=== PATIENT | female | born 1985 | race Caucasian/White ===

== ENCOUNTER → 2018-01-27 14:17 | Outpatient (CLI) | payer OTHER, SELFPAY ==
[2018-01-27 15:08] LABS: Amphetamine/Metha Screen,Urine Positive ng/mL (<1000); Barbiturates Screen,Urine Negative ng/mL (<200); Benzodiazepines Screen,Urine Negative ng/mL (200); Cannabinoid Screen,Urine Negative ng/mL (<50); Cocaine Screen,Urine Negative ng/g (<300); Methadone Screen,Urine Negative ng/mL (<300); Opiate Screen,Urine Negative ng/mL (<300); Phencyclidine Screen,Urine Negative ng/mL (<25)
== END ==
PROVIDERS: Nurse Practitioner Family; PCP Internal Medicine Adolescent Medicine; Visit Provider Internal Medicine Adolescent Medicine
DX: Z00.00 Encounter for general adult medical examination without abnormal findings (principal)
CPT/HCPCS: 80305

== ENCOUNTER → 2018-03-05 12:30 | Outpatient (CLI) | payer OTHER, SELFPAY ==
--- NOTE | 2018-03-05 12:37 | US_ITS ---
US abdomen limited History:Right upper quadrant pain Ordering Physician:Molly Plunkett Patient Age: 32 years Comparison:None Findings: Pancreas:Unremarkable. No obvious mass or abnormal fluid collection. No ductal dilatation Liver:No focal liver lesions demonstrated. Homogeneous echogenicity. No intrahepatic biliary ductal dilatation evident Right Kidney:Unremarkable. Normal size and echogenicity. No hydronephrosis Gallbladder:No gallstones, gallbladder wall thickening, pericholecystic fluid, or biliary dilatation. Impression:Negative gallbladder/right upper quadrant ultrasound
== END ==
PROVIDERS: Family Provider Internal Medicine Adolescent Medicine; PCP Internal Medicine Adolescent Medicine; Visit Provider Nurse Practitioner Family
DX: R10.10 Upper abdominal pain, unspecified (principal)
CPT/HCPCS: 76705

== ENCOUNTER 2020-12-10 10:31 | Emergency (ER) | payer BC, SELFPAY ==
[2020-12-10 10:45] VITALS: BP 133/83; PULSE 113; RESP 20; TEMP 36.8; O2SAT 98; BMI 42.4
--- NOTE | 2020-12-10 11:07 | HMH.EDUTC ---
[facility] [place] Clinical Impression: Cough, Encounter for laboratory testing for COVID-19 virus Disposition: Home, Self-Care Condition on Discharge: Good Instructions: Cough, DI for COVID-19 (Suspected or Confirmed ), Coronavirus Disease 2019, Preventing the Spread of Coronavirus Discharge Instructions, Benzonatate Additional Instructions: *Monitor Temp, Over the counter Motrin or Tylenol as directed/as needed Tylenol every 4 hours and Motrin every 6 hours (as long as your family doctor has told you that you can take it) for fever or pain. and straight to ER if unable to lower temp less than 101.0 after medication given *Warm salt water gargles may help to soothe the throat if your throat is feeling sore *Warm fluids like tea with honey may help to soothe the throat *Sleep elevated *Humidifier/Vaporizer Follow up IMMEDIATELY for new or worsening symptoms or no Noticeable improvement over the next 48-72 hours. 911 for difficulty breathing or swallowing You were tested for today for COVID19 your test result should be back in the next 24-48 hours, you may call to the [facility] to see if your test results are back in the next 48 hours [phone] [facility] hours are 9am-9pm You was given a handout with instructions for Self Quarantine and Self isolation for while you wait on test results and what to do if they are positive If you are positive the Health Dept will be contacting you also Prescriptions: Benzonatate [Tessalon Perle 100mg Cap*] 100 mg PO TID PRN #30 cap PRN Reason: Cough Transmission Status: Pending to [place] [id number] Referrals: Scott Monroy MD [Primary Care Provider] - As needed Forms: Work/School Release Time of Disposition: 11:20 Medical Decision Making - Carlos Inquiry Pt receiving controlled substance: No Carlos was queried for this patient: No Vital Signs: 12/10/20 10:45 Temperature 98.3 F Temperature Source Oral Pulse Rate [Right Brachial] 113 H Respiratory Rate 20 Blood Pressure [Right Arm] 133/83 Blood Pressure Mean [Right Arm] 99 Blood Pressure Source [Right Arm] Automatic Cuff Blood Pressure Position [Right Arm] Sitting 02 Sat by Pulse Oximetry 98 Oxygen Delivery Method Room Air [facility] [place] HPI - General Stated complaint: SOB;Cough;Fatigue Time Seen by Provider: 12/10/20 11:07 Mode of Arrival: Ambulatory Source of Information: Patient Limitations: No Limitations Description of Symptoms (Recalled from Triage Doc. by RN): PATIENT C/O WEAKNESS AND SOA SINCE SATURDAY AND DRY COUGH SINCE SATURDAY AND DRY COUGH SINCE HEENT Symptoms (Recalled from RN notes): No Resp Symptoms (Recalled from RN notes): Yes Skin Symptoms (Recalled from RN notes): No MS Symptoms (Recalled from RN notes): No Functional Status (Recalled from RN notes): WNL - History of Present Illness Provider Complaint: Patient states that she has exercised induced asthma and she noticed while she was working out she felt short of breath and used her inhaler and it helped States that she was recently around some students that had to quarantine due to COVID exposure and on Saturday she started feeling bad, feeling tired and having a cough and she was concerned and wanted to get tested for COVID - Related Data Home Medications Medication Instructions Recorded Confirmed Cetirizine HCl/Pseudoephedrine 1 each PO DAILY 04/21/18 04/21/18 [Zyrtec-D Tablet] Fluoxetine HCl [Prozac 10mg 10 mg PO DAILY 04/21/18 04/21/18 Capsule] Previous Rx's Medication Instructions Recorded predniSONE [Prednisone 10mg Tab 10 mg PO UD DOSE PK #1 pack 04/21/18 Dose-Pack] Azithromycin [Z-Dakota 250mg Tab*] 250 mg PO UD DOSE PK #6 tab 08/06/18 Benzonatate [Tessalon Perle 100mg 100 mg PO TID PRN #30 cap 08/06/18 Cap] Fluticasone Propionate [Flonase 2 spr NS DAILY #1 bottle 08/06/18 50mcg nasal spray 16gm] predniSONE [Prednisone 20mg 20 mg PO BID #10 tab 08/06/18 Tab] Benzonatate [Tessalon Perle 100mg 100 mg PO TID PRN #30
[2020-12-10 11:21] VITALS: BP 133/83; PULSE 113; RESP 20; TEMP 36.8; O2SAT 98
== END 2020-12-10 11:25 | disposition home or self-care (01) ==
PROVIDERS: Emergency Provider Nurse Practitioner; PCP Internal Medicine Adolescent Medicine
DX: Z20.822 Contact with and (suspected) exposure to COVID-19 (principal); R53.83 Other fatigue; R05 Cough
CPT/HCPCS: 99202; G0463; U0003

== ENCOUNTER → 2021-01-12 09:56 | Outpatient (CLI) | payer BC, SELFPAY ==
[2021-01-12 10:27] LABS: Basophils # 0.1 K/mm3 (0-0.2); Basophils % 0.7 % (0.1-2.0); Eosinophils # 0.1 K/mm3 (0.0-0.4); Eosinophils % 1.1 % (0.1-12.0); Hematocrit 40.3 % (37.0-47.0); Hemoglobin 13.8 g/dL (12.2-16.2); Lymphocytes # 2.2 K/mm3 (0.7-4.5); Mean Corpuscular HGB Conc 34.3 g/dL (31.8-35.4); Mean Corpuscular Hemoglobin 30.1 pg (27.0-31.2); Mean Corpuscular Volume 87.8 fl (81-99); Mean Platelet Volume 8.3 fl (7.4-10.4); Monocytes # 0.4 K/mm3 (0.1-1.0); Monocytes % 4.6 % (1.7-9.3); Neutrophils # 5.5 K/mm3 (1.8-7.8); Neutrophils % 66.6 % (37.0-80.0); Platelet Count 291 K/mm3 (142-424); Red Blood Count 4.59 M/mm3 (4.20-5.40); White Blood Count 8.2 K/mm3 (4.8-10.8)
[2021-01-12 11:09] LABS: Alanine Aminotransferase 17 U/L (12-78); Albumin Level 4.4 g/dl (3.5-5.0); Albumin/Globulin Ratio 1.7 (1.1-1.8); Alkaline Phosphatase 84 U/L (38-126); Anion Gap 13.3 mEq/L (5-15); Aspartate Amino Transferase 23 U/L (14-36); Bilirubin,Total 0.6 mg/dl (0.2-1.3); Blood Urea Nitrogen 15 mg/dl (7-17); Calcium 9.5 mg/dl (8.4-10.2); Carbon Dioxide 22 mmol/L (22.0-30.0); Chloride 106 mmol/L (98-107); Chol/HDL Ratio 2.5 (1-3.5); Cholesterol 216 mg/dl (140-200); Estimated Glomerular Filt Rate 83 ml/min (>60); GFR (African American) 100 ML/MIN (>60); Globulin 2.6 g/dL (1.3-3.2); Glucose 95 mg/dl (74-100); HDL Cholesterol 88 mg/dl (40-60); Potassium 4.3 mmoL/L (3.5-5.1); Sodium 137 mmol/L (136-145); Triglycerides 198 mg/dl (30-150); VLDL Cholesterol 40 mg/dL (0-40)
[2021-01-12 11:20] LABS: Direct LDL Cholesterol 84.98 mg/dL (100-129)
[2021-01-12 11:26] LABS: 25-OH Vitamin D, Total 45.5 ng/mL (30-100)
[2021-01-12 11:40] LABS: Thyroid Stimulating Hormone 1.06 uIU/mL (0.465-4.68)
[2021-01-12 11:59] LABS: Vitamin B12 704 pg/mL (239-931)
== END ==
PROVIDERS: Visit Provider Nurse Practitioner Family
DX: Z00.00 Encounter for general adult medical examination without abnormal findings (principal); R53.83 Other fatigue; E55.9 Vitamin D deficiency, unspecified
CPT/HCPCS: 36415; 80053; 80061; 82306; 82607; 84443; 85025

== ENCOUNTER → 2021-10-31 07:49 | Outpatient (CLI) | payer BC, SELFPAY ==
--- NOTE | 2021-10-31 07:53 | US_ITS ---
FINAL REPORT CLINICAL HISTORY: MENORRHAGIA W/REGULAR CYCLE FINDINGS: Transvaginal sonographic images of the pelvis were obtained. The uterus measures 9.0 x 6.7 x 7.8 cm. The endometrium measures 6 mm, which is within normal limits. There is a 5.4 cm fibroid in the posterior myometrium. The right ovary measures 3.2 cm in length and left ovary measures 3.3 cm in length. Normal blood flow seen to the ovaries. There is a 1.6 cm cyst in the right ovary. There is no evidence of free fluid. IMPRESSION: 5.4 cm uterine fibroid. Reviewed, Interpreted and Dictated by Mykel Lund MD Transcribed by Eli Rios Authenticated by Mykel Lund MD on 10/31/2021 04:18:19 PM [facility]
== END ==
PROVIDERS: PCP Internal Medicine Adolescent Medicine; Visit Provider Nurse Practitioner Family
DX: N92.0 Excessive and frequent menstruation with regular cycle (principal)
CPT/HCPCS: 76830

== ENCOUNTER 2022-06-10 13:08 | Emergency (ER) | payer BC, SELFPAY ==
[2022-06-10 13:25] VITALS: BP 130/74; PULSE 113; RESP 20; TEMP 36.5; O2SAT 97; BMI 44.8
--- NOTE | 2022-06-10 13:38 | EXP.UTC ---
Discharge Plan Disposition Patient Disposition: Home, Self-Care Condition: Good Prescriptions Prescriptions: New methylprednisolone [Medrol (Dakota)] 4 mg tablets,dose pack 4 mg PO DIRECTED 6 Days Qty: 6 0RF Rx Instructions: 4 mg orally ;Medrol dose taper dakota Referrals Follow up/Referrals: Molly Plunkett APRN [Primary Care Provider] - See instructions Clinical Impressions Clinical Impression: Sinusitis, acute Instructions Patient Instructions: DI for Sinusitis, Sinus Headache Discharge ED Provider[place] Clara Zep[place] [facility] [place] General Stated complaint: Covid+, TERESA, drainage Time Seen by Provider: 06/10/22 13:38 History of Present Illness Provider Complaint: Pt relates that she was diagnosed with Covid on . She relates that she has been feeling SOA and using her inhaler to assist with her breathing. She states that her ears feel full and her sinus' have been feeling heavy . She states she has had a headache. Related Data Previous Rx's Medication Instructions Recorded methylprednisolone 4 mg tablets in 4 mg PO DIRECTED 6 days #6 tabs 06/10/22 a dose pack (Medrol (Dakota)) Allergies Allergy/AdvReac Type Severity Reaction Status Date / Time No Known Allergies Allergy Verified 04/21/18 09:24 [facility] Medical History (Updated 06/10/22 @ 14:16 by Clara Zepeda APRN) Asthma Social History Smoking Status: Never smoker alcohol intake: never current occupational status: other Travel in the last 8 weeks: None ROS Obtained: Yes All systems reviewed & no additional complaints except as documented Constitutional Constitutional: Reports system reviewed and no additional complaints, except as documented, Reports as per HPI, Reports fatigue, Reports fever(s), Reports headache(s) and Reports malaise Eyes Eyes: Reports system reviewed and no additional complaints, except as documented ENT Ears, Nose, Mouth, and Throat: Reports headache(s), Reports nasal congestion and Reports nasal discharge Cardiovascular Cardiovascular: Reports system reviewed and no additional complaints, except as documented Respiratory Respiratory: Reports as per HPI, Reports shortness of breath, Reports chest congestion and Reports non-productive cough Gastrointestinal Gastrointestingal: Reports system reviewed and no additional complaints, except as documented Musculoskeletal Musculoskeletal: Reports system reviewed and no additional complaints, except as documented Integumentary/Breasts Skin/Breast: Reports system reviewed and no additional complaints, except as documented Neurologic Neurologic: Reports system reviewed and no additional complaints, except as documented and Reports headache(s) Endocrine Endocrine: Reports fatigue Physical Exam General General appearance: alert and in no apparent distress Eye Eye exam: Present normal appearance ENT ENT exam: Present mucous membranes moist and other Expanded ENT Exam External ear exam: Present normal external inspection TM/Canal exam: Bilateral TM: effusion Nose exam: Present sinus tenderness Nasal speculum exam: Bilateral: other (clear drainage noted) Mouth exam: Present normal external inspection Teeth exam: Present normal inspection Throat exam: Present normal inspection Neck Neck exam: Present normal inspection Respiratory Respiratory exam: Present normal lung sounds bilaterally and respiratory distress Cardiovascular Cardiovascular exam: Present regular rate and normal rhythm Abdominal Exam Abdominal exam: Present soft Extremities Exam Extremities exam: Present normal inspection Neurological Exam Neurological exam: Present alert and oriented X3 Medical Decision Making Carlos Inquiry Pt receiving controlled substance: No Carlos was queried for this patient: No
[2022-06-10 14:17] VITALS: BP 130/74; PULSE 113; RESP 20; TEMP 36.5; O2SAT 97
== END 2022-06-10 14:22 | disposition home or self-care (01) ==
PROVIDERS: Emergency Provider Nurse Practitioner Family; PCP Nurse Practitioner Family
DX: U07.1 COVID-19 (principal); J01.90 Acute sinusitis, unspecified
CPT/HCPCS: 99212; G0463

== ENCOUNTER → 2023-09-24 15:40 | Outpatient (CLI) | payer BC, SELFPAY | PROVIDERS: PCP Nurse Practitioner Family; Visit Provider Nurse Practitioner Family | DX: R10.30 Lower abdominal pain, unspecified (principal); R31.29 Other microscopic hematuria; B96.89 Other specified bacterial agents as the cause of diseases classified elsewhere | CPT/HCPCS: 87086 ==

== ENCOUNTER 2023-10-17 16:58 | Outpatient (CLI) | payer BC, SELFPAY ==
[2023-10-17 17:44] LABS: Basophils # 0.1 K/mm3 (0-0.2); Basophils % 0.7 % (0.1-2.0); Eosinophils # 0.1 K/mm3 (0.0-0.4); Hematocrit 41.4 % (37.0-47.0); Lymphocytes # 2.9 K/mm3 (0.7-4.5); Mean Corpuscular HGB Conc 33.9 g/dL (31.8-35.4); Mean Corpuscular Volume 82.5 fl (81-99); Monocytes # 0.5 K/mm3 (0.1-1.0); Monocytes % 4.9 % (1.7-9.3); Neutrophils # 7.1 K/mm3 (1.8-7.8); Neutrophils % 66.4 % (37.0-80.0); Platelet Count 292 K/mm3 (142-424); Red Blood Count 5.02 M/mm3 (4.20-5.40); Red Cell Distribution Width 15.1 % (11.5-17.5); White Blood Count 10.7 K/mm3 (4.8-10.8)
[2023-10-17 17:47] LABS: Alanine Aminotransferase 26 U/L (12-78); Albumin Level 4.9 g/dl (3.5-5.0); Albumin/Globulin Ratio 1.8 (1.1-1.8); Alkaline Phosphatase 105 U/L (38-126); Aspartate Amino Transferase 25 U/L (14-36); Bilirubin,Total 0.7 mg/dl (0.2-1.3); Blood Urea Nitrogen 16 mg/dl (7-17); Calcium 9.2 mg/dl (8.4-10.2); Carbon Dioxide 23 mmol/L (22.0-30.0); Chloride 102 mmol/L (98-107); Cholesterol 209 mg/dl (140-200); Estimated Glomerular Filt Rate 81 ml/min (>60); GFR (African American) 98 ML/MIN (>60); Globulin 2.8 g/dL (1.3-3.2); Glucose 95 mg/dl (74-100); HDL Cholesterol 52 mg/dl (40-60); Sodium 133 mmol/L (136-145); Total Protein,Serum 7.7 g/dl (6.3-8.2); Triglycerides 125 mg/dl (30-150); VLDL Cholesterol 25 mg/dL (0-40)
[2023-10-17 17:58] LABS: Direct LDL Cholesterol 114.73 mg/dL (100-129)
[2023-10-17 18:04] LABS: 25-OH Vitamin D, Total 35.4 ng/mL (30-100)
[2023-10-17 18:18] LABS: Thyroid Stimulating Hormone 1.26 uIU/mL (0.465-4.68)
[2023-10-18 12:50] LABS: Vitamin B12 958 pg/mL (239-931)
== END 2023-10-17 23:59 ==
PROVIDERS: PCP Nurse Practitioner Family; Visit Provider Nurse Practitioner Family
DX: R53.83 Other fatigue (principal); E55.9 Vitamin D deficiency, unspecified; E66.01 Morbid (severe) obesity due to excess calories; Z68.42 Body mass index [BMI] 45.0-49.9, adult
CPT/HCPCS: 36415; 80053; 80061; 82306; 82607; 83036; 84443; 85025

== ENCOUNTER 2023-12-03 13:07 | Outpatient (POV) | payer BC, SELFPAY | END 2023-12-03 23:59 | disposition home or self-care (01) | LOC: SC 13:07 | PROVIDERS: PCP Nurse Practitioner Family; Visit Provider Dermatology | DX: Z00.00 Encounter for general adult medical examination without abnormal findings (principal) ==

== ENCOUNTER 2024-01-28 15:30 | Outpatient (POV) | payer BC, SELFPAY | END 2024-01-28 23:59 | disposition home or self-care (01) | LOC: SC 15:30 | PROVIDERS: PCP Nurse Practitioner Family; Visit Provider Dermatology | DX: Z00.00 Encounter for general adult medical examination without abnormal findings (principal) ==

== ENCOUNTER 2024-04-21 15:58 | Outpatient (POV) | payer BC, SELFPAY | END 2024-04-21 23:59 | disposition home or self-care (01) | LOC: SC 15:58 | PROVIDERS: PCP Nurse Practitioner Family; Visit Provider Dermatology | DX: Z00.00 Encounter for general adult medical examination without abnormal findings (principal) ==

== ENCOUNTER 2024-05-13 15:01 | Outpatient (CLI) | payer BC, SELFPAY ==
--- NOTE | 2024-05-13 15:08 | US_ITS ---
FINAL REPORT TECHNIQUE: Ultrasound images of the kidneys and bladder were obtained. CLINICAL HISTORY: ELEV SERUM CREATNINE FINDINGS: The right kidney measures 10.1 cm in length. It is normal in echogenicity. There is no hydronephrosis. The left kidney measures 10.4 cm in length. It is normal in echogenicity. There is no hydronephrosis. The spleen is unremarkable. IMPRESSION: Unremarkable renal ultrasound. Reviewed, Interpreted and Dictated by Bryan Bassett III, MD Transcribed by Danica Spaulding Authenticated and [facility]
[2024-05-13 15:25] LABS: Microscopic, Urine URINE MICROSCOPIC (MICROSCOPIC)
[2024-05-13 16:23] LABS: Appearance,Urine CLEAR (Clear); Bilirubin,Urine Negative (Negative); Blood, Urine 1+ (Negative); Color,Urine YELLOW (Yellow); Glucose,Urine (UA) Negative (Negative); Ketones,Urine Negative (Negative); Leukocyte Esterase,Urine Negative (Negative); Nitrate,Urine Negative (Negative); Protein,Urine Negative (Negative); Specific Gravity, Urine >= 1.030 (1.005-1.030); Urobilinogen,Urine 0.2 EU/dl (0.2)
[2024-05-13 17:25] LABS: RBC,Urine Occasional #/hpf (0-3)
== END 2024-05-13 23:59 | disposition home or self-care (01) ==
LOC: RAD 15:01
PROVIDERS: PCP Nurse Practitioner Family; Visit Provider Nurse Practitioner Family
DX: R79.89 Other specified abnormal findings of blood chemistry (principal)
CPT/HCPCS: 76770; 81001

== ENCOUNTER 2024-07-25 09:08 | Emergency (ER) | payer BC, SELFPAY ==
[2024-07-25 09:09] VITALS: BP 161/82; PULSE 124; RESP 19; TEMP 37.2; O2SAT 95; BMI 40.4
--- NOTE | 2024-07-25 09:16 | PC.NURSE ---
dr srivastava at bedside
--- NOTE | 2024-07-25 09:18 | CT_ITS ---
PROCEDURE INFORMATION: Exam: CT Abdomen And Pelvis Without Contrast Exam date and time: 07/25/2024 10:01 AM Age: 38 years old Clinical indication: Abdominal pain; Flank; Lower; Additional info: Flank pain rad to abd bilaterally TECHNIQUE: Imaging protocol: Computed tomography of the abdomen and pelvis without contrast. Radiation optimization: All CT scans at this facility use at least one of these dose optimization techniques: automated exposure control; mA and/or kV adjustment per patient size (includes targeted exams where dose is matched to clinical indication); or iterative reconstruction. COMPARISON: US KIDNEY 05/13/2024 3:02 PM FINDINGS: Liver: Normal. No mass. Gallbladder and biliary ducts: The gallbladder is unremarkable Pancreas: Normal. No ductal dilation. Spleen: Borderline splenomegaly 13 cm.. Adrenal glands: Normal. No mass. Kidneys and ureters: Punctate nonobstructing right renal calculus. No ureteral calculus. Stomach and bowel: Unremarkable. No obstruction. No mucosal thickening. Appendix: Normal appendix Intraperitoneal space: Unremarkable. No free air. No significant fluid collection. Vasculature: Unremarkable. No abdominal aortic aneurysm. Lymph nodes: Unremarkable. No enlarged lymph nodes. Urinary bladder: Unremarkable as visualized. Reproductive: Uterus is enlarged 7.7 x 7.7 cm Bones/joints: Unremarkable. No acute fracture. Soft tissues: Unremarkable. IMPRESSION: 1. Punctate nonobstructing right renal calculus. No ureteral calculus. 2. Borderline splenomegaly 13 cm.. Differential diagnosis of splenomegaly is lymphoma/leukemia, mononucleosis, hemolytic anemia, portal hypertension.
--- NOTE | 2024-07-25 09:20 | ED_ITS ---
Discharge Plan Disposition Patient Disposition: Home, Self-Care Prescriptions Prescriptions: New cyclobenzaprine 10 mg tablet 10 mg PO TID PRN (Reason: muscle spasm) 5 Days Qty: 15 0RF lidocaine 4 % adhesive patch,medicated 1 patch topical DAILY Qty: 5 0RF Rx Instructions: may leave on for up to 12 hrs ibuprofen 800 mg tablet 800 mg PO TID PRN (Reason: pain) 7 Days Qty: 20 0RF No Action Qelbree 200 mg capsule,extended release 24hr 200 mg PO .COMPLEX Qty: 60 1RF Rx Instructions: take 1 daily for 2 weeks; then increase to 2 capsules daily Trintellix 20 mg tablet 20 mg PO DAILY Qty: 30 1RF Referrals Follow up/Referrals: Molly Plunkett APRN [Primary Care Provider] - See instructions Activity Restrictions/Add. Instructions Additional Instructions/Restrictions: As discussed there was no definitive emergent medical condition identified today. You had slight splenomegaly on your CT scan and some intrarenal kidney stones but those are not the cause of your symptoms. Most likely this is superficial musculoskeletal inflammatory pain however the radiation you have on bilateral abdomens is nonspecific could be from meralgia paresthetica that we discussed which may improved with wearing loosefitting clothes. Return precautions were discussed and return with any significant worsening of your symptoms. Clinical Impressions Clinical Impression: Bilateral flank pain, Lower back pain Print Language Print Language: Ivorian Discharge ED Provider: Quentin Coleman General Adult HPI General Chief complaint: PAIN Stated complaint: back pain Time Seen by Provider: 07/25/24 09:12 History of Present Illness HPI narrative: Patient is a 38-year-old female presenting today with bilateral flank and lower back pain. She states that this began suddenly 2 days ago has been intermittent but since yesterday evening has been constant and severe. She states that it radiates around the anterior aspects of both sides of her abdomen. It is not lateralizing at all. She denies any dysuria frequency urgency or hematuria or history of kidney stones. She denies any trauma. She denies having any history of injection drug use cancer lower extremity paralysis saddle anesthesia incontinence injection drug use etc. No significant abdominal pain nausea vomiting diarrhea etc. She denies any significant past medical history other than being fat. Related Data Previous Rx's ?Medication ?Instructions ?Recorded viloxazine 200 mg capsule,extended 200 mg PO .COMPLEX #60 caps 06/24/24 release 24 hr (Qelbree) vortioxetine 20 mg tablet 20 mg PO DAILY #30 tabs 06/24/24 (Trintellix) cyclobenzaprine 10 mg tablet 10 mg PO TID PRN muscle spasm 5 07/25/24 days #15 tabs ibuprofen 800 mg tablet 800 mg PO TID PRN pain 7 days #20 07/25/24 tabs lidocaine 4 % topical patch 1 patch topical DAILY #5 ea 07/25/24 Allergies Allergy/AdvReac Type Severity Reaction Status Date / Time No Known Allergies Allergy Verified 06/30/24 11:23 [facility] Disclaimer: The information contained in this section may have been updated after the patient was seen, as this information can be updated by other users. Medical History (Updated 07/25/24 @ 09:20 by Quentin Coleman MD) Concentration deficit Generalized anxiety disorder PCOS (polycystic ovarian syndrome) Asthma Social History (Updated 05/13/24 @ 13:41 by Jammie Conrad APRN) Smoking Status: Never smoker second hand exposure: No alcohol intake: current alcohol intake frequency: holidays/special occasions only counseling given: No substance use type: denies use counseling given: No current occupational status: employed Travel in the last 8 weeks: None adopted: No caregiver/support person: No foster care: No household members: spouse housing: house lives independently: Yes marital status: number of children: 0 number of grandchildren: 0 education level: master's degree current occupation: teacher; has masters in education Hx Recent Travel: No sexually active: Yes caffeine: Yes physical activity: none working smoke detector in home: No fire extinguisher in home: Yes carbon monox detector in home: Yes firearms in home: Yes firearms unloaded and locked: Yes do you feel safe at home: Yes victim of physical abuse: No victim of emotional abuse: No victim of sexual abuse: No would you like helpful sources: No Other Medical History Have you received the Pneumonia Vaccine: No ROS Obtained: Yes All systems reviewed & no additional complaints except as documented Physical Exam General General appearance: other (Crying in pain) Respiratory Respiratory exam: Present normal lung sounds bilaterally Cardiovascular Cardiovascular exam: Present regular rate and normal rhythm Abdominal Exam Abdominal exam: Present soft; Absent distention Neurological Exam Neurological exam: Present alert and oriented X3 Medical Decision Making Medical Records Screening: Per USPSTF and CDC recommendations, given the prevalence of disease in our region, it is our hospital?s policy to screen for HIV and viral Hepatitis for all patients aged 18 and over and those with ongoing risk factors. Carlos Inquiry Pt receiving controlled substance: No Vital Signs: 07/25/24 09:09 07/25/24 10:20 Temperature 98.9 F Temperature Source Oral Pulse Rate 80 Pulse Rate [Left Radial] 124 H Respiratory Rate 19 Blood Pressure 101/56 L Blood Pressure [Right Arm] 161/82 H Blood Pressure Mean 71 Blood Pressure Mean [Right Arm] 108 02 Sat by Pulse Oximetry 95 99 Oxygen Delivery Method Room Air Room Air Lab Data Lab results reviewed: Yes I reviewed the patient's lab results. Lab Results 07/25/24 09:25: WBC 9.7, RBC 5.23, Hgb 14.5, Hct 42.8, MCV 81.8, MCH 27.7, MCHC 33.8, RDW 15.2, Plt Count 281, MPV 8.5, Neut % (Auto) 64.1, Lymph % (Auto) 27.7, [place] % (Auto) 4.6, Eos % (Auto) 2.2, Baso % (Auto) 1.3, Neut # (Auto) 6.2, Lymph # (Auto) 2.7, [place] # (Auto) 0.5, Eos # (Auto) 0.2, Baso # (Auto) 0.1, Sodium 141, Potassium 4.3, Chloride 109 H, Carbon Dioxide 20 L, Anion Gap 16.3 H, BUN 19 H, Creatinine 1.00, Estimated Creat Clear 148, Estimated GFR 63, Est GFR ( Amer) 76, Glucose 107 H, Calcium 9.8, Total Bilirubin 0.7, AST 27, ALT 29, Alkaline Phosphatase 88, Total Protein 8.1, Albumin 5.0, Globulin 3.1, Albumin/Globulin Ratio 1.6, Lipase 103, Serum HCG, Qual Negative 07/25/24 10:11: Urine Color Yellow, Urine Appearance Clear, Urine pH 6.0, Ur Specific [place] 1.025, Urine Protein Negative, Urine Glucose (UA) Negative, Urine Ketones Negative, Urine Blood Trace-i, Urine Nitrate Negative, Urine Bilirubin Negative, Urine Urobilinogen 0.2, Ur Leukocyte Esterase Negative, Urine RBC Occasional, Urine WBC None, Ur Squamous Epith Cells 3-5, Urine Bacteria None 07/25/24 09:25 07/25/24 09:25 Orders (Tests/Meds): ED MEDICATIONS Discontinued Medications Generic Name Dose Route Start Last Admin Trade Name Danette PRN Reason Stop Dose Admin Diazepam 2 mg 07/25/24 09:18 07/25/24 09:32 Diazepam 10mg/2ml Syringe IV 07/25/24 09:19 2 mg ONCE ONE Administration Lactated Ringer's 1,000 mls @ 999 mls/hr 07/25/24 09:30 07/25/24 09:32 Lactated Ringer's 1000 Ml Bag IV 07/25/24 10:30 999 mls/hr .Q1H1M CHECO Administration Ketorolac Tromethamine 15 mg 07/25/24 09:18 07/25/24 09:33 Ketorolac 30mg/Ml Vial IV 07/25/24 09:19 15 mg ONCE ONE Administration ORDERS Category Date Time Status CT abdomen pelvis wo con Stat Cat Scan 07/25/24 09:18 Completed CBC w/Auto Diff [Complete Blood Count Auto Diff] Stat Lab 07/25/24 09:25 Completed CMP [Comprehensive Metabolic Panel] Stat Lab 07/25/24 09:25 Completed HCG Qualitative, Serum Stat Lab 07/25/24 09:25 Completed HIV (1&2) Antibody Rapid Stat Lab 07/25/24 09:19 Received Hep C Ab with Reflex to RNA Stat Lab 07/25/24 09:19 Received Lipase Stat Lab 07/25/24 09:25 Completed UA [Urinalysis and Microscopic] Stat Lab 07/25/24 10:11 Completed Medical Decision Narrative: 38-year-old above history and physical. Most likely this is musculoskeletal however she describes severe pain that is radiating around both anterior aspects of her abdomen. It is unlikely that she would have bilateral kidney stones but that is on the differential and will get a noncontrasted CT scan for further evaluation. She does have some midline lower back pain as well I suspect she does not have any pathology to her lumbar spine but we will get a view of this on the CT scan as well. She denies any symptoms and has no physical exam findings concerning for any central process such as cauda equina syndrome. Additionally from historical standpoint do not suspect an epidural abscess or an infection. She will be given a low-dose of Valium both from an anxiolytic standpoint and muscle relaxation standpoint as well as IV Toradol and some fluids and will reassess after this workup is complete. Reassessment 1110 patient is feeling better. Serial exams are unremarkable. CT scan performed which I personally interpreted which shows no acute abdominal or pelvic emergent medical condition. There is some small intrarenal stone not causing her symptoms also radiology read slight splenomegaly which I told to the patient but this is nonspecific. Overall this is consistent with superficial musculoskeletal pain in the low back such as sacroiliitis. However her radiation around to bilateral anterior abdominal aspect is nonspecific and typically does not fit with this. Therefore there is some diagnostic uncertainty I explained this to the patient. She may have some component of meralgia paresthetica. I advised that she try some nontight fitting close to see if that would help with the anterior discomfort. No evidence of any surgical emergency. Symptomatic medications have been prescribed return precautions emphasized patient discharged in stable condition. Critical Care Critical Care Time Critical Care Time: No
[2024-07-25 09:32] LABS: Basophils # 0.1 K/mm3 (0-0.2); Basophils % 1.3 % (0.1-2.0); Eosinophils # 0.2 K/mm3 (0.0-0.4); Eosinophils % 2.2 % (0.1-12.0); Hematocrit 42.8 % (37.0-47.0); Hemoglobin 14.5 g/dL (12.2-16.2); Lymphocytes # 2.7 K/mm3 (0.7-4.5); Lymphocytes % 27.7 % (10-50); Mean Corpuscular HGB Conc 33.8 g/dL (31.8-35.4); Mean Corpuscular Hemoglobin 27.7 pg (27.0-31.2); Mean Corpuscular Volume 81.8 fl (81-99); Mean Platelet Volume 8.5 fl (7.4-10.4); Monocytes # 0.5 K/mm3 (0.1-1.0); Monocytes % 4.6 % (1.7-9.3); Neutrophils # 6.2 K/mm3 (1.8-7.8); Neutrophils % 64.1 % (37.0-80.0); Platelet Count 281 K/mm3 (142-424); Red Blood Count 5.23 M/mm3 (4.20-5.40); Red Cell Distribution Width 15.2 % (11.5-17.5); White Blood Count 9.7 K/mm3 (4.8-10.8)
[2024-07-25] MEDS: LACTATED RINGERS 1000ML 1,000 ML 999 ML IV (09:32)
[2024-07-25] MEDS: diazePAM 10MG/2ML SYRINGE 2 MG IV (09:32)
[2024-07-25] MEDS: KETOROLAC 30MG/ML VIAL 15 MG IV (09:33)
[2024-07-25 09:48] LABS: Chloride 109 mmol/L (98-107); Potassium 4.3 mmoL/L (3.5-5.1); Sodium 141 mmol/L (136-145)
[2024-07-25 09:50] LABS: Blood Urea Nitrogen 19 mg/dl (7-17); Creatinine Clearance Estimated 148 mL/min (50-200); Estimated Glomerular Filt Rate 63 ml/min (>60); GFR (African American) 76 ML/MIN (>60); HCG Qualitative, Serum Negative (Negative)
--- NOTE | 2024-07-25 09:50 | PC.NURSE ---
pt to ct via wheelchair
[2024-07-25 09:51] LABS: Alanine Aminotransferase 29 U/L (12-78); Albumin/Globulin Ratio 1.6 (1.1-1.8); Alkaline Phosphatase 88 U/L (38-126); Anion Gap 16.3 mEq/L (5-15); Aspartate Amino Transferase 27 U/L (14-36); Bilirubin,Total 0.7 mg/dl (0.2-1.3); Calcium 9.8 mg/dl (8.4-10.2); Carbon Dioxide 20 mmol/L (22.0-30.0); Globulin 3.1 g/dL (1.3-3.2); Glucose 107 mg/dl (74-100); Lipase 103 U/L (23-300); Total Protein,Serum 8.1 g/dl (6.3-8.2)
--- NOTE | 2024-07-25 09:54 | PC.NURSE ---
Patient out of room, Patient is gone to CT
[2024-07-25 10:20] VITALS: BP 101/56; PULSE 80; O2SAT 99
--- NOTE | 2024-07-25 10:21 | PC.NURSE ---
pt back to room from ct
[2024-07-25 10:23] LABS: Microscopic, Urine URINE MICROSCOPIC (MICROSCOPIC)
[2024-07-25 10:30] LABS: Appearance,Urine CLEAR (Clear); Bilirubin,Urine Negative (Negative); Blood, Urine TRACE-I (Negative); Color,Urine YELLOW (Yellow); Glucose,Urine (UA) Negative (Negative); Ketones,Urine Negative (Negative); Leukocyte Esterase,Urine Negative (Negative); Nitrate,Urine Negative (Negative); Protein,Urine Negative (Negative); Specific Gravity, Urine 1.025 (1.005-1.030); Urobilinogen,Urine 0.2 EU/dl (0.2)
[2024-07-25 10:50] LABS: RBC,Urine Occasional #/hpf (0-3)
--- NOTE | 2024-07-25 10:59 | PC.NURSE ---
dr srivastava at bedside to update pt and family
[2024-07-25 11:00] VITALS: BP 104/69; PULSE 84; O2SAT 100
[2024-07-25 11:15] VITALS: BP 104/69; PULSE 84; RESP 13; RESP 18; TEMP 37.2; O2SAT 100
[2024-07-25 11:41] LABS: HIV (1&2) Antibody Rapid NONREACTIVE (NONREACTIVE)
[2024-07-28 05:16] LABS: HCV Ab Non Reactive (Non Reactive)
== END 2024-07-25 11:16 | disposition home or self-care (01) ==
PROVIDERS: Emergency Provider Student in an Organized Health Care Education/Training Program; PCP Nurse Practitioner Family
DX: M54.50 Low back pain, unspecified (principal); R10.9 Unspecified abdominal pain
CPT/HCPCS: 74176; 80053; 81001; 83690; 84703; 85025; 86803; 87389; 96361; 96374; 96375; 99284; J1885; J3360; J7120

== ENCOUNTER 2024-08-13 15:20 | Outpatient (CLI) | payer BC, SELFPAY ==
--- NOTE | 2024-08-13 15:25 | XR_ITS ---
PROCEDURE INFORMATION: Exam: XR Lumbosacral Spine Exam date and time: 08/13/2024 3:37 PM Age: 38 years old Clinical indication: Injury or trauma; Other: Strained; Sprain or strain, lumbar ligaments; Additional info: Strain of lumbar. Pain radiates around to abdomen and down L leg TECHNIQUE: Imaging protocol: Radiologic exam of the lumbosacral spine. Views: 4 or 5 views. COMPARISON: CT ABDOMEN PELVIS WO CON 07/25/2024 10:01 AM FINDINGS: Bones/joints: Five rib less lumbar type vertebral bodies. Unremarkable lumbar spine for age. Soft tissues: Unremarkable. IMPRESSION: Unremarkable lumbar spine for age.
== END 2024-08-13 23:59 | disposition home or self-care (01) ==
LOC: RAD 15:21
PROVIDERS: PCP Nurse Practitioner Family; Visit Provider Nurse Practitioner Family
DX: S39.012D Strain of muscle, fascia and tendon of lower back, subsequent encounter (principal)
CPT/HCPCS: 72110

== ENCOUNTER 2024-09-24 17:00 | Outpatient (RCR) | payer BC, SELFPAY ==
--- NOTE | 2024-08-13 18:23 | HMH.PTOPEV ---
PT Outpatient Evaluation Rehab PT Outpatient Evaluation Start: 08/13/24 15:57 Freq: Status: Active Protocol: Document 08/13/24 15:58 BROCKRONALDO (Rec: 08/13/24 18:23 JES [id number]) E-signed By Alyse Mcgraw, PT Outpatient Therapy Subjective History Subjective History Pt is a 38 y/o female who reports insidious onset of central low back pain on 07/25. Pt reports she woke up early that morning with severe sharp low back pain that radiated from her low back to the side and front of her hips . Pt denies known trauma or injury, states she did go to the chiropractor a couple days prior to onset of pain for her neck and had her back manipulated which led to mild LBP. Pt reports she went to the ED on 07/25/24 due to severe pain where she had a CT of her abdomen/pelvis, states she was told she had an enlarged spleen without other findings. Pt reports the doctor is monitoring this, however, was told her pain was musculoskeletal in nature and prescribed steroids and muscle relaxers. Pt reports this medication has seemed to help overall. Pt reports she had a lumbar spine xray earlier this date as well but has not received results yet. Pt reports continued intermittent low back pain that radiates to the anterolateral hips. Pt denies b/b dysfunction, paresthesia or saddle anesthesia. Pt reports pain is worse in the morning time and aggravated by prolonged sitting, standing, walking, ascending stairs, breathing, sneezing/coughing and performing sit to stand transfers. Occupation: grade teacher Medical History: Concentration deficit, Generalized anxiety disorder, PCOS (polycystic ovarian syndrome), Asthma Core strength: 4-/5 New diagnosis of cancer in past 12 No months? Chief Complaint Pain Symptom Type Ache,Throb,Sharp,Dull Symptoms Relieved By Rest/Positioning,Ice, Prescription Meds Symptoms Aggravated By Standing,Bending/Stooping, Physical Activity,Twisting, Walking,Lifting,Sneeze/ Coughing Current Functional Limitations Lifting,Housework,Sleeping, Standing,Squatting,Recreation Activity,Walking,Stairs, Bending/Stooping Symptom Description Intermittent Level of pain today (0-10) 2 Pain scale - at its best (0-10) 0 Pain scale - at its worst (0-10) 5 Lumbopelvic Eval Posture Lumbar Spine Posture Standing Position Increased Lordosis Assistive device Assistive Devices None / NA Palapation tenderness bilateral lumbar spinal tenderness Yes paraspinal tenderness Yes Lumbar/Sacral Palpation Findings Tenderness Lumbar/Sacral Palpation Overall Comment 2/4 TTP Accessory Movement L-spine Vertebrae Accessory Movements Central P/A [place] that Elicit Symptoms L4 bilateral L5 bilateral Range of Motion Lumbar Spine Active Flexion Range of 100 Motion (degrees) Lumbar Spine Active Extension Range of 20 p! Motion (degrees) Left Lumbar Spine Lateral Flexion Active 10 Range of Motion (degrees) Right Lumbar Spine Lateral Flexion 5 p! Active Range of Motion (degrees) Manual Muscle Test Bilateral Knee Extension Strength Grade 5 Normal Knee Flexion Strength Grade 5 Normal Hip Flexion Strength Grade 4 Good Hip Abduction Strength Grade 5 Normal Hip Adduction Strength Grade 5 Normal Hip Extension Strength Grade 4 Good Ankle Dorsiflexion Strength Grade 5 Normal DTR Rt Patellar 2+ Lt Patellar 2+ Altered Sensation Bilateral Comment equal and intact to light touch sensation Special Tests Hip Scouring (Quadrant) Test Negative Left,Negative Right Hip Salo (NIGEL) Test Positive Left,Positive Right Sciatic Nerve Tension Test Negative Left,Negative Right Unilateral Straight Leg Raise (Lasegue) Negative Left,Negative Right Test Oswestry Index Section 1 Pain Intensity The pain comes and goes and is severe Section 2 Personal Care (Washing,Dresing) my way of washing or dressing even though it causes some pain Section 3 Lifting I can only lift very light weights at most Section 4 Walking I cannot walk at all without increasing pain Section 5 Sitting I avoid sitting because it increases my pain immediately Section 6 Standing I have some pain on standing, but it does not increase with time Section 7 Sleeping Because of my pain, my normal night's sleep is less than 6 hours sleep Section 8 Social Life Pain has restricted my social life and I do not go out often Section 9 Traveling I get some pain when traveling , but none of my usual forms of travel m Section 10 Changing Degreee of Pain My pain is neither getting better or worse Score and Risk Level Oswestry Sc 30 Oswestry Risk Level Severe Disability Outpatient Therapy Assessment Impairments Problems/Impairmments Palpation Tenderness,Impaired Range of Motion,Impaired Strength,Impaired Transfers, Impaired Walking,Impaired Standing,Impaired Sitting, Impaired Lifting,Impaired Household Care,Impaired Stair Climbing,Impaired Squatting, Impaired Work Activities, Subjective C/O Pain,Impaired Self Care/Self Management Prognosis Rehab Potential Good Clinical Impression Consistent with Diagnosis Yes Consistent with s/s consistent with QL strain Short Term Goals Number of Weeks 3 Improve Oswestry Score Yes: Improve score to 25 or less to improve overall QOL Improve Self Care/Self Management Yes Patient to be Ind w/ HEP Yes Intermediate Goals Number of Weeks 6 Increase Range of Motion Yes: Improve lumbar AROM ext/ LF to at least 15-20 Increase Strength Yes: Improve hip/core strength to 4+-5/5 grossly to assist with function Improve Ability to Climb Stairs Yes: ascend 1 flight reciprocally with pain 3/10 or less to assist with function Improve Oswestry Score Yes: Improve score to 20 or less to improve overall QOL Decrease Subjective C/O Pain Yes: Improve pain at worst to 3/10 or less to improve overall QOL Outpatient Therapy Plan of Care Treatment Plan May Include Therapeutic Exercise Including Home Yes Exercise Program Manual Therapy Techniques Yes Neuromuscular Re-education Yes Therapeutic Activities to Return to Yes Previous Functional/Work Level ADL/Self Care Education Yes Mechanical Traction Yes Dry Needling Yes Thermal Modalities Yes Electrical Stimulation Yes Ultrasound/Phonophoresis Yes Iontophoresis Yes Massage Yes Eval/Re-Eval Yes Frequency Times per week 2 Duration Number of Weeks 4-6 Addendums This patient is a candidate for social No or vocational rehab? Patient/Guardian verbally acknowledges Yes understanding of treatment program and consents to further treatment? Patient/Guardian verbally acknowledges Yes understanding of diagnosis, prognosis and goals for treatment? Eval Complexity PT Charges 74971 - Low Complexity Shoulder/Elbow Eval Shoulder Objective Measurements Elbow Objective Measurements PHYSICIAN CERTIFICATION: I certify the specified therapy services for [facility] are required, authorized, and reviewed every 30 days.
--- NOTE | 2024-09-14 18:15 | HMH.RHREAS ---
Rehab Reassessment Rehab OP Re-assessment Start: 08/13/24 15:57 Freq: Status: Active Protocol: Document 09/14/24 16:52 BROCKRONALDO (Rec: 09/14/24 18:14 JES [id number]) E-signed By Alyse Mcgraw PT Oswestry Index Section 1 Pain Intensity The pain comes and goes and is moderate Section 2 Personal Care (Washing,Dresing) my way of washing or dressing even though it causes some pain Section 3 Lifting I can lift heavy weights, but it gives me extra pain Section 4 Walking I cannot walk more than 1/2 mile without increasing pain Section 5 Sitting Pain prevents me from sitting for more than one hour Section 6 Standing I cannot stand more than 1 hour without increasing pain Section 7 Sleeping Because of my pain, my normal night's sleep is less than 6 hours sleep Section 8 Social Life My social life is normal but increases the degree of pain Section 9 Traveling I get some pain when traveling , but none of my usual forms of travel m Section 10 Changing Degreee of Pain My pain fluctuates, but overall is definitely getting better Score and Risk Level Oswestry Sc 16 Oswestry Risk Level Moderate Disability Rehab Re-assessment Subjective Subjective Pt reports she hasn't attended PT since her initial evaluation due to being busy and being sick. Pt reports she has been intermittently compliant with her HEP, states the stretches do help with pain. Pt reports overall she feels 70% improved. Pt reports continued R>L posterolateral hip pain rated 6/10 at worst that occurs at night time, with prolonged inactivity or prolonged activity. Pt reports pain often wakes her up at night. Pt reports she is able to traverse stairs better and longer has pain with deep breaths or sneezing/coughing. Pt had a lumbar spine xray on 08/13/24 without significant findings. Objective Objective Notes TTP: 2/4 TTP of L2-4 Lumbar AROM: flex 100, ext 30, RLF 20 p! R, LLF 25 Hip strength: 4/5 grossly Assessment Assessment Notes Pt has not attended PT since her initial evaluation performed on 08/13/24 until this date. Pt reports intermittent compliance with HEP that has led to improvement in symptoms. Pt demonstrated improved CAIN score, lumbar AROM and subjective report of pain this date compared to the initial evaluation. Pt continues to report pain with lumbar ROM end ranges and pain with prolonged activity or inactivity often impairing her sleep health. Overall, the pt would continue to benefit from skilled PT to further improve subjective report of pain, hip/core strength and functional activity tolerance to improve overall QOL. Patient goals met ST/3 LT/5 Goals Not Met p! at worst, strength Revised Goals n/a Plan Plan Continue initial POC Frequency of Therapy 2x/week Duration of therapy 4 more weeks Time and Billing Re-Eval Time 10 Re-Eval Billing Units 0 Charge for PT reassessment? No Charge for OT reassessment? No PHYSICIAN CERTIFICATION: I certify the specified therapy services for [facility] are required, authorized, and reviewed every 30 days.
== END 2024-09-24 23:59 | disposition home or self-care (01) ==
LOC: PT 17:00
PROVIDERS: Visit Provider Nurse Practitioner Family
DX: M54.50 Low back pain, unspecified (principal)
CPT/HCPCS: 97014; 97110; 97163; 97530; G0283

== ENCOUNTER → 2025-03-23 10:02 | Outpatient (CLI) | payer BC, SELFPAY ==
--- OUTSIDE RECORDS SUMMARY | 2025-01-09 17:30 | XMS_ITS ---
Author Organization [facility] Address [address] [place] [address] Care Team Providers Care Bath Solution Maker Name Role Phone Scott Monroy Primary Care Provider [phone] Migration, Provider Unavailable Unavailable REASON FOR VISIT [facility] To [facility] Conversion Encounter Medications Medication SIG (Take, Route, Frequency, Duration) Notes Start Date End Date Status Cefdinir 300 MG 1 cap(s) orally every 12 hours for 10 days 11/23/2024 Active Ondansetron HCl 4 MG 1 tab(s) orally every 8 hours as needed for nausea/vomiting for 4 days 11/23/2024 Active ZyrTEC-D Allergy & Congestion 5-120 MG 1 tab(s) orally 2 times a day Active Slynd 4 MG 1 tab(s) orally once a day Active Trintellix 20 MG 1 tab(s) orally once a day for 90 days 05/07/2024 Active ATOMOXETINE HYDROCHLORIDE 40 MG 1 CAP(S) ORALLY ONCE A DAY (IN THE MORNING) for 30 DAY(S) *Please review for potential replacement for e-prescription and drug interaction check* 11/05/2024 Active Cyclobenzaprine HCl 5 MG 1-2 tabs orally at night as needed for spasm for 30 days prn 08/05/2024 Active Valtrex 1 GM 2 tablets at onset of fever blister orally 2 times a day prn for 1 days Active LEVALBUTEROL TARTRATE HFA 45 MCG/INH 2 INH INHALED EVERY 6 HOURS PRN *Please review for potential replacement for e-prescription and drug interaction check* 12/28/2024 Active ZEPBOUND PEN 12.5 MG/0.5 ML INJECT 1 SYRINGE SUBCUTANEOUSLY ONCE A WEEK for 28 *Please review for potential replacement for e-prescription and drug interaction check* Active Methocarbamol 500 MG 2 tab(s) orally 2 times a day as needed for muscle spasm for 10 days prn 07/28/2024 Active Rizatriptan Benzoate 10 MG 1 tab(s) orally once a day as needed for migraine for 30 days 07/09/2024 Active Encounters Encounter Location Date Provider Diagnosis [facility] [address] [place], [place] [address] 01/09/2025 Provider Migration Left acute otitis media H66.92 ; Weight loss counseling, encounter for Z71.3 and Gastroenteritis K52.9 Assessments Encounter Date Diagnosis (ICD Code) Assessment Notes Treatment Notes Treatment Clinical Notes Section Notes 01/09/2025 Left acute otitis media (ICD-10 - H66.92) 01/09/2025 Weight loss counseling, encounter for (ICD-10 - Z71.3) 01/09/2025 Gastroenteritis (ICD-10 - K52.9) Plan Of Treatment Medication Medication Name Sig Start Date Stop Date Notes Cefdinir 300 MG 1 cap(s) orally ever y 12 hours for 10 days 11/23/2024 Ondansetron HCl 4 MG 1 tab(s) orally rigo ry 8 hours as needed for nausea/vomiting for 4 days 11/23/2024 LEVALBUTEROL TARTRATE HFA 45 MCG/INH 2 INH INHALED EVERY 6 HOURS PRN 12/28/2024 *Please review for potential replacement for e-prescription and drug interaction check* ZEPBOUND PEN 12.5 MG/0.5 ML INJECT 1 SYRINGE SUBCUTANEOUSLY ONCE A WEEK for 28 *Please review for potential replacement for e-prescription and drug interaction check* Progress Notes * [facility] SPAINOB:02/1986 (39 yo F)Acc No.[id number]:01/09/2025 Patient: Julita [facility]ER Provider: Miguel kerr Migration :1985 A ge:39 Y S ex:Female Date:01/09/2025 Address:[address], [id number] Pcp:Scott Monroy Subjective: * Chief Complaints: * 1 . [facility] Conversion Encounter. * Medical History: * Medications: T aking Slynd 4 MG Tablet 1 tab(s) orally once a day , Taking ZyrTEC-D Allergy & Congestion 5-120 MG Tablet Extended Release 12 Hour 1 tab(s) orally 2 times a day , Taking Trintellix 20 MG Tablet 1 tab(s) orally once a day , Taking Rizatriptan Benzoate 10 MG Tablet 1 tab(s) orally once a day as needed for migraine , Taking Methocarbamol 500 MG Tablet 2 tab(s) orally 2 times a day as needed for muscle spasm , Notes to Pharmacist: prn, Taking Cyclobenzaprine HCl 5 MG Tablet 1-2 tabs orally at night as needed for spasm , Notes to Pharmacist: prn, Taking ATOMOXETINE HYDROCHLORIDE 40 MG CAPSULE 1 CAP(S) ORALLY ONCE A DAY (IN THE MORNING) , Notes to Pharmacist: *Please review for potential replacement for e-prescription and drug interaction check*, Taking Valtrex 1 GM Tablet 2 tablets at onset of fever blister orally 2 times a day prn Objective: * Vitals: Assessment: * Assessment: 1. L eft acute otitis media - H66.92 (Primary) 2 . W eight loss counseling, encounter for - Z71.3 3 . G astroenteritis - K52.9 Plan: * Treatment: 2. W eight loss counseling, encounter for Start ZEPBOUND PEN SOLUTION, 12.5 MG/0.5 ML, INJECT 1 SYRINGE SUBCUTANEOUSLY ONCE A WEEK, 28, 4 MILLILITER, Refills 0, Notes to Pharmacist: *Please review for potential replacement for e-prescription and drug interaction check*. 3. G astroenteritis Start Ondansetron HCl Tablet, 4 MG, 1 tab(s), orally, every 8 hours as needed for nausea/vomiting, 4 days, 12, Refills 0. 4. O thers Start LEVALBUTEROL TARTRATE HFA AEROSOL, 45 MCG/INH, 2 INH, INHALED, EVERY 6 HOURS PRN, 1, Refills 0, Notes to Pharmacist: *Please review for potential replacement for e-prescription and drug interaction check*. * * Electronic signature of Reinaldo peterson Migration on 03/24/2025 at 10:10 AM EDT Sign off status: Pending * Provider: Miguel kerr Migration Date: 0 01/09/2025 Generated for Arturo moya/Aman/Baldemar on: 0 03/24/2025 10:10 AM EDT
--- OUTSIDE RECORDS SUMMARY | 2025-03-24 10:10 | XMS_ITS | Patient Health Record ---
Author Organization [facility] Address [address] [place], [place] [address] Care Team Providers Care Physician Coder Name Role Phone Scott Monroy Primary Care Provider [phone] Molly Plunkett Unavailable [phone] Adelaide De Guzman Unavailable [phone] Migration, Provider Unavailable Unavailable Allergies No Known Allergies Results Component Value Reference Range Notes HEMOGLOBIN A1c (496) Reviewed date:05/12/2024 10:42:55 AM Interpretation: Performing Lab:[facility], [id number] [place] Notes/Report: FASTING: YES FASTING:YES NON-FASTING; NON-FASTING; NON-FASTING HEMOGLOBIN A1c 5.4 <5.7 % of total Hgb For the purpose of screening for the presence of diabetes: <5.7% Consistent with the absence of diabetes 5.7-6.4% Consistent with increased risk for diabetes (prediabetes) > or =6.5% Consistent with diabetes This assay result is consistent with a decreased risk of diabetes. Currently, no consensus exists regarding use of hemoglobin A1c for diagnosis of diabetes in children. According to [place] Diabetes Association (ADA) guidelines, hemoglobin A1c <7.0% represents optimal control in non- diabetic patients. Different metrics may apply to specific patient populations. Standards of Medical Care in Diabetes(ADA). This test was performed on the Chantell mayra c503 platform. Effective 12/11/23, a change in test platforms from the Herbert Derrick Boat Runner to the Chantell mayra c503 may have shifted HbA1c results compared to historical results. Based on laboratory validation testing conducted at [facility], the Chantell platform relative to the Herbert platform had an average increase in HbA1c value of < or = 0.3%. This difference is within accepted variability established by the National Glycohemoglobin Standardization Program. Note that not all individuals will have had a shift in their results and direct comparisons between historical and current results for testing conducted on different platforms is not recommended. COMPREHENSIVE METABOLIC PANE L (31108) Reviewed date:05/12/2024 10:42:55 AM Interpretation: Performing Lab:[facility], [facility] [id number] [place] Notes/Report: NON-FASTING; NON-FASTING; NON-FASTING FASTING:YES FASTING: YES GLUCOSE 86 65-99 mg/dL Fasting reference interval UREA NITROGEN (BUN) 16 7-25 mg/dL CREATININE 1.03 0.50-0.97 mg/dL EGFR 72 > OR = 60 mL/min/1.73m2 BUN/CREATININE RATIO 16 6-22 (calc) SODIUM 137 135-146 mmol/L POTASSIUM 4.4 3.5-5.3 mmol/L CHLORIDE 104 98-110 mmol/L CARBON DIOXIDE 23 20-32 mmol/L CALCIUM 9.5 8.6-10.2 mg/dL PROTEIN, TOTAL 7.3 6.1-8.1 g/dL ALBUMIN 4.8 3.6-5.1 g/dL GLOBULIN 2.5 1.9-3.7 g/dL (calc) ALBUMIN/GLOBULIN RATIO 1.9 1.0-2.5 (calc) BILIRUBIN, TOTAL 0.8 0.2-1.2 mg/dL ALKALINE PHOSPHATASE 101 31-125 U/L AST 16 10-30 U/L ALT 18 6-29 U/L LIPID PANEL, STANDARD (7600) Reviewed date:05/12/2024 10:42:55 AM Interpretation: Performing Lab:[facility] [address], [facility] [id number] [place] Notes/Report: NON-FASTING; NON-FASTING; NON-FASTING FASTING:YES FASTING: YES CHOLESTEROL, TOTAL 179 <200 mg/dL HDL CHOLESTEROL 47 > OR = 50 mg/dL TRIGLYCERIDES 78 <150 mg/dL LDL-CHOLESTEROL 115 Reference range: <100 Desirable range <100 mg/dL for primary prevention; <70 mg/dL for patients with CHD or diabetic patients with > or = 2 CHD risk factors. LDL-C is now calculated using the eBlen calculation, which is a validated novel method providing better accuracy than the Friedewald equation in the estimation of LDL-C. Srinivas SS et al. COREY. 2013;310(77): 4307-0870 (http://education.Funding Gates/faq /XRT013) CHOL/HDLC RATIO 3.8 <5.0 (calc) NON HDL CHOLESTEROL 132 <130 mg/dL (calc) For patients with diabetes plus 1 major ASCVD risk factor, treating to a non-HDL-C goal of <100 mg/dL (LDL-C of <70 mg/dL) is considered a therapeutic option. Ultrasound : Renal, bilatera l Reviewed date:05/20/2024 03:05:42 PM Interpretation: Performing Lab: Notes/Report: M-Urinalysis and Microscopic Reviewed date:05/13/2024 05:40:09 PM Interpretation: Performing Lab: Notes/Report: UCOL YELLOW Yellow UAPP CLEAR Clear UPH 6.0 5.0-8.5 USG >= 1.030 1.005-1.030 UPRO Negative Negative UGLU Negative Negative UKET Negative Negative UBLD 1+ Negative UNIT Negative Negative UBIL Negative Negative UURO 0.2 0.2 EU/dl ULEU Negative Negative UMICU URINE MICROSCOPIC MICROSCOPIC URBC Occasional 0-3 #/hpf UWBC None 0-3 #/hpf USQEPI None 0-5 #/hpf UBACT None NONE /lpf Urinalysis Reviewed date:11/23/2024 07:47:22 PM Interpretation: Performing Lab: Notes/Report: Color/Clarity yellow clear Leuk neg Nitrite neg Urobili 0.2 Protein neg pH 7.0 Blood trace-intact Sp. Gr. 1.025 Ketone neg Bili neg Glucose neg X ray : Spines, Lumbosacral Reviewed date:08/18/2024 11:00:16 AM Interpretation: Performing Lab: Notes/Report: Reason For Referral Reason Home Sleep study Diagnosis 1 Dysesthesia of face (R20.8) Referral Organization [facility] Referring Provider First Name Molly Referring Provider Last Name Kiarra Referring Provider Speciality Family Pra ctice Referred Organization [facility] Referred Address [address] [facility], [place] Referred Provider Specialty Sleep Study Referral Priority Routine Medications Medication SIG (Take, Route, Frequency, Duration) Notes Start Date End Date Status Methocarbamol 500 MG 2 tab(s) orally 2 times a day as needed for muscle spasm for 10 days prn 07/28/2024 Active Cefdinir 300 MG 1 cap(s) orally every 12 hours for 10 days 11/23/2024 Active ATOMOXETINE HYDROCHLORIDE 40 MG 1 CAP(S) ORALLY ONCE A DAY (IN THE MORNING) for 30 DAY(S) *Please review for potential replacement for e-prescription and drug interaction check* 11/05/2024 Active Cyclobenzaprine HCl 5 MG 1-2 tabs orally at night as needed for spasm for 30 days prn 08/05/2024 Active Zepbound 15 MG/0.5ML 0.5 mL Subcutaneous once a week for 84 days 03/02/2025 Active Ondansetron HCl 4 MG 1 tab(s) orally every 8 hours as needed for nausea/vomiting for 4 days 11/23/2024 Active ZyrTEC-D Allergy & Congestion 5-120 MG 1 tab(s) orally 2 times a day Active Slynd 4 MG 1 tab(s) orally once a day Active LEVALBUTEROL TARTRATE HFA 45 MCG/INH 2 INH INHALED EVERY 6 HOURS PRN *Please review for potential replacement for e-prescription and drug interaction check* 12/28/2024 Active Rizatriptan Benzoate 10 MG 1 tab(s) orally once a day as needed for migraine for 30 days 07/09/2024 Active Valtrex 1 GM 2 tablets at onset of fever blister orally 2 times a day prn for 1 days Active Trintellix 20 MG 1 tab(s) orally once a day for 90 days 05/07/2024 Active Immunizations Vaccine Route Administration Date Status Comme nts Adacel (Tdap) IM Intramuscular 07/13/2011 Administered Flublok IM Intramuscular 07/05/2022 Administered Fluvirin--Influen za vaccine 3+ year IM Intramuscular 10/04/2012 Administered lot # [id number] e xp date 04/05/2013 H1N1 Vaccine IM Intramuscular 08/27/2009 Administered Hep B Adult (#1) IM Intramuscular 07/13/2011 Administered Problems Problem Type SNOMED Code ICD Code Onset Dates Problem Status W/U Status Risk Notes Problem 78982969 Flexural eczema (L20.82) Active confirmed Problem 179207086321001 Lumbago with sciatica, right side (M54.41) Active confirmed Problem 917408436 Lumbago with sciatica, left side (M54.42) Active confirmed Problem 125955336 Depression with anxiety (F41.8) Active confirmed Problem 08068003 Anxiety (F41.9) Active confirmed Problem Vitamin D deficiency (E55.9) Active confirmed Problem 488448509 Seasonal allergi es (J30.2) Active confirmed Problem 475612790 Menorrhagia with regular cycle (N92.0) Active confirmed Problem 251636777 Obesity, morbid, BMI 40.0-49.9 (E66.01) Active confirmed Problem 524676011 BMI 40.0-44.9, adult (Z68.41) Active confirmed Problem 886167667 Dysmenorrhea (N94.6) Active confirmed Problem Lower abdominal pain (70704326) Lower abdominal pain (R10.30) Active confirmed Problem 873751964 BMI 50.0-59.9, adult (Z68.43) Active confirmed Problem 155441497 Elevated sed rat e (R70.0) Active confirmed Problem 879067443 PCOS (polycystic ovarian syndrome) (E28.2) Active confirmed Problem 83685923 Exercise-induced asthma (J45.990) Active confirmed Problem 929207410 Peripheral edema (R60.9) Active confirmed Problem 4065751 Fever blister (B00.1) Active confirmed Problem 09521241 Cervicogenic migraine (G43.809) Active confirmed Problem 570655682356 Daytime somnolen ce (R40.0) Active confirmed Problem 236324240 Menometrorrhagia (N92.1) Active confirmed Problem 507945 PMDD (premenstru al dysphoric disorder) (F32.81) Active confirmed Problem 08488955 Major depression , recurrent, chronic (F33.9) Active confirmed Problem Dysesthesia of face (818569312) Dysesthesia of face (R20.8) Active confirmed Vital Signs Heart Rate 108 /min 11/23/2024 Temperature 98 degrees Fahrenheit 11/23/2024 Blood pressure diastolic 80 mm Hg 11/23/2024 Height 5 ft 6.25 in in 11/23/2024 Blood pressure systolic 118 mm Hg 11/23/2024 Weight 256.8 lbs 11/23/2024 BMI 41.13 kg/m2 11/23/2024 Encounters Encounter Location Date Provider Diagnosis [facility] [address] [facility] [address] [facility] [address] [place], [place] [address] 01/09/2025 Provider Migration Left acute otitis media H66.92 ; Weight loss counseling, encounter for Z71.3 and Gastroenteritis K52.9 [facility] [address] [place], [place] [address] 05/07/2024 Molly Plunkett Weight loss counseli ng, encounter for Z71.3 ; Dysesthesia of face R20.8 ; Routine medical exam Z00.00 ; BMI 40.0-44.9, adult Z68.41 and Major depression, recurrent, chronic F33.9 [facility] [address] [place] [address] 07/28/2024 Molly Plunkett Strain of lumbar region, subsequent encounter S39.012D [facility] [place] [address] [address] 11/04/2024 Mollykinjal Plunkett Weight loss counseli ng, encounter for Z71.3 ; Dysesthesia of face R20.8 ; BMI 40.0-44.9, adult Z68.41 ; Major depression, recurrent, chronic F33.9 and Daytime somnolence R40.0 [facility] [address] [place] [address] 11/23/2024 Molly Plunkett Lower abdominal pain R10.30 ; Left acute otitis media H66.92 and Gastroenteritis K52.9 [facility] [place] [address] [address] 05/12/2024 Molly Plunkett Elevated serum creatinine R79.89 [facility] [address] [address] 05/20/2024 Molly Kiarra [facility] [address] [place] [address] 05/29/2024 Adelaide Gab [facility] [place] [address] [place] [address] 07/09/2024 Molly Kiarra [facility] [address] [place] [address] 08/04/2024 Molly Kiarar Strain of lumbar region, subsequent encounter S39.012D [facility] [address] [place] [address] 10/14/2024 Molly Kiarra [facility] [address] [place] [address] 11/04/2024 Molly Kiarra [facility] [place] [address] [place] [address] 12/28/2024 Molly Kiarra Exercise-induced ast hma J45.990 [facility] [place] [address] [address] 02/05/2025 Molly Kiarra [facility] [place] [address] [place] [address] 03/02/2025 Molly Kiarra Assessments Encounter Date Diagnosis (ICD Code) Assessment Notes Treatment Notes Treatment Clinical Notes Section Notes 05/07/2024 Dysesthesia of face (ICD-10 - R20.8) Resolving at this point. We discussed possible etiologies including mild trigeminal neuralgia. Would not recommend any treatment unless her symptoms progress or otherwise do not resolve. 05/07/2024 Weight loss counseling, encounter for (ICD-10 - Z71.3) Weight is down consistently since that pound has been available. Continue to titrate monthly as tolerated. 05/12/2024 Elevated serum creatinine (ICD-10 - R79.89) 07/28/2024 Strain of lumbar region, subsequent encounter (ICD-10 - S39.012D) Attempting to avoid NSAIDs because of some mildly abnormal renal function in the past few months. Continue good water intake, Tylenol as needed. She encouraged her to start using heat instead of only ice. Medrol Dosepak and different muscle relaxer as noted. Gentle stretching encouraged. Attempt to return to work in 48 hours. Return precautions reviewed 08/04/2024 Strain of lumbar region, subsequent encounter (ICD-10 - S39.012D) 11/04/2024 Weight loss counseling, encounter for (ICD-10 - Z71.3) Weight is down consistently since zepbound has been available consistently. Continue to titrate monthly as tolerated. 11/04/2024 Dysesthesia of face (ICD-10 - R20.8) Resolving again at this point. We discussed possible etiologies including mild trigeminal neuralgia. Would not recommend any treatment unless her symptoms progress or otherwise do not resolve. 11/23/2024 Left acute otitis media (ICD-10 - H66.92) 11/23/2024 Lower abdominal pain (ICD-10 - R10.30) suspect r/t acute gastroenteriti s. vomiting seems resolved. start zofran, bland diet and clear fluids. strict return precautions reviewed 12/28/2024 Exercise-induced asthma (ICD-10 - J45.990) 01/09/2025 Left acute otitis media (ICD-10 - H66.92) 01/09/2025 Weight loss counseling, encounter for (ICD-10 - Z71.3) 01/09/2025 Gastroenteritis (ICD-10 - K52.9) 11/23/2024 Gastroenteritis (ICD-10 - K52.9) 11/04/2024 BMI 40.0-44.9, adult (ICD-10 - Z68.41) 05/07/2024 Routine medical exam (ICD-10 - Z00.00) 05/07/2024 BMI 40.0-44.9, adult (ICD-10 - Z68.41) 11/04/2024 Major depression, recurrent, chronic (ICD-10 - F33.9) stable, no changes recommended. 11/04/2024 Daytime somnolence (ICD-10 - R40.0) discouraged use of stimulant for fatigue unless ADD symtoms are otherwise present/poorly managed...bakari mmend home sleep study to rule out underlying RADHA as a contributor to her fatigue, obesity, headaches 05/07/2024 Major depression, recurrent, chronic (ICD-10 - F33.9) At this point has failed several medications including Wellbutrin, Lexapro, Viibryd, Prozac. We were finally able to get Trintellix approved. Rec increase back to 20mg and keep appt to establish with BH Plan Of Treatment Pending Test Test Name Order Date X ray : Ankle, Right 11/28/2015 Physical Therapy 08/04/2024 Physical Therapy 03/20/2017 H-CBC with AUTO DIFF 12/08/2010 H-CMP 12/08/2010 H-TSH 12/08/2010 H-VIT D, 25-HYDROXY 01/04/2017 H-RHEUMATOID ARTHRITIS PROFILE 6 C-FREE T4 10/21/2019 VENIPUNCT, ROUTINE* 11/28/2015 H-URINE DRUG SCREEN 02/11/2018 M-Vitamin B12 01/10/2021 M-Vitamin D 25 Hydroxy 01/10/2021 LIPID PANEL, STANDARD (7600) 10/17/2023 COMPREHENSIVE METABOLIC PANEL (29257) CBC (INCLUDES DIFF/PLT) (6399) HEMOGLOBIN A1c (496) 10/17/2023 TSH W/REFLEX TO FT4 (28510) 10/17/2023 VITAMIN D,25-OH,TOTAL,IA [phone] Insurance Providers Payer Name Payer Address Payer Phone Subscriber Number Group Number Insured Name Patient Relationship to Insured Coverage Start Date Coverage End Date [facility] [address] [place] [address] [id number] [place] Self - patient is the insured Medications Administered Medication Instructions Date of Administration Dosage Notes Dexamethasone 4mg Injection 06/15/2021 4 mg Kenalog 40mg 02/06/2017 40 mg Triamcinolone Acetonide 40mg Injection 04/05/2020 1 mL Triamcinolone Acetonide 40mg Injection 02/03/2021 1 mL Medical (General) History Medical History History ICD Code rosacea Exercised induced asthma Anxiety Morbid Obesity Vitamin D deficiency Polycystic Ovarian disease DUB with uterine fibroids Surgical History Surgery Date(Month/Year) oral surgery-wisdom teeth 2005
--- OUTSIDE RECORDS SUMMARY | 2025-03-24 10:10 | XMS_ITS | Clinical Summary ---
Author Organization [facility] Address [address] [place] [address] Care Team Providers Care Bench Assembler Operator Name Role Phone Molly Plunkett TARUN Primary Care Provider [phone]- [phone] Allergies No known active allergies Medications cetirizine-pseu doephedrine (ZyrTEC-D) 5-120 MG 12 hr tablet every 12 (twelve) hours. Active albuterol 108 (90 Base) MCG/ACT inhaler Inhale 2 puffs. Active hydrOXYzine HCl (Atarax) 25 MG tablet 1 tab(s) 02/08/2022 Active valACYclovir (Valtrex) 1 g tablet 2 tablets at onset of fever blister Active Vortioxetine HBr (Trintellix) 20 MG tablet 1 (one) time each day at the same time. 10/18/2021 Active medroxyPROGESTE Shawn (Provera) 10 MG tablet Take 1 tablet (10 mg) by mouth 1 (one) time each day. 07/04/2023 Active Active Problems Problem Noted Date Diagnosed Date Pelvic and perineal pain 01/16/2023 Assessment & Plan (01/16/2023 8:40 AM EDT): - UA shows UTI, will send culture - IUD strings seen on exam - will send Macrobid BID x 5 days, diflucan Rx for frequent yeast infections with antibiotics - discussed if symptoms are still present after treating for UTI, RTC for LAB ENGINEER ultrasound to evaluate IUD Polycystic ovaries 11/05/2022 Peripheral edema 11/05/2022 Morbid obesity 11/05/2022 Mixed anxiety and depressive disorder 11/05/2022 Migraine without aura, not refractory 11/05/2022 Flexural eczema 11/05/2022 Fever blister 11/05/2022 Exercise-induced asthma 11/05/2022 Elevated erythrocyte sedimentation rate 11/05/19 23 Dysmenorrhea 11/05/2022 Anxiety 11/05/2022 Intramural leiomyoma of uterus 09/26/2022 Assessment & Plan (07/12/2023 3:29 PM EDT): - Mirena expulsed, has provera currently - RTC for LAB ENGINEER ultrasound to monitor size of fibroid - if similar in size plan for Mirena placement Assessment & Plan (11/05/2022 3:34 PM EST): - Labs reviewed 11/2021 normal - ultrasound showed a 5.2 cm posterior fibroid ~ 1 year ago - TVUS: uterus anteverted, measures around 8-9 cm, posterior intramural fibroid measuring up to 4.7 cm, normal left ovary, right ovary not visualized, no free fluid - we discussed that fibroid is similar is size to ~ 1 year ago - she desires a Mirena IUD for contraception and to help with periods. - Mirena placed today without difficulty - RTC as needed Assessment & Plan (09/26/2022 2:15 PM EST): - Labs reviewed 11/2021 normal - ultrasound showed a 5.2 cm posterior fibroid ~ 1 year ago - we discussed treatment options for fibroids including hormonal control with OCPs, Mirena IUD, myomectomy, uterine fibroid embolization, and hysterectomy. - We discussed that hysterectomy is the definitive treatment, but that it is not the only treatment option and is not indicated as she may desire future fertility - we discussed myomyectomy. We discussed that based on current size and position on ultrasound, that if I were to perform the surgery it would be through a large incision. We discussed that it might be able to be down laparoscopically and that there are surgeons at that could perform the surgery. We discussed that she would have to wait 9 months to try to conceive and that she would have a to have a scheduled section. - we discussed UFE and that it is not indicated if she desires future fertility - we discussed that an ultrasound would help determine if the fibroid distorts the endometrial canal for an IUD. - RTC for ultrasound Social History Tobacco Use Types Packs/Day Years Used Date Smoking Tobacco: Never Smokeless Tobacco: Never Tobacco Cessation:Counseling Given: Not Answered Alcohol Use Standard Drinks/Week Comments Yes 3 (1 standard drink = 0.6 oz pur e alcohol) PHQ-2 Answer Date Recorded Patient Health Questionnaire-2 Score 0 07/12/2023 PHQ-2A Answer Date Recorded Patient Health Questionnaire-2 Score 0 07/12/2023 Comments No Sex and Gender Information Value Date Recorded Sex Assigned at Not on file Legal Sex Female 12:14 PM EST Gender Identity Not on file Sexual Orientation Not on file Last Filed Vital Signs Vital Sign Reading Time Taken Comments Blood Pressure 120/85 01/16/2023 8:18 AM EDT Pulse 97 07/12/2023 2:56 PM EDT Temperature 36.8 C (98.2 F) 07/12/2023 2:56 PM EDT Respiratory Rate 17 11/05/2022 2:57 PM EST Oxygen Saturation 98% 07/12/2023 2:56 PM EDT Inhaled Oxygen Concentration - - Weight 145 kg (318 lb 10.8 oz) 07/12/2023 2:56 P M EDT Height 172.7 cm (5' 8 ) 11/05/2022 2:57 PM EST Body Mass Index 48.45 11/05/2022 2:57 PM EST Plan of Treatment Health Maintenance Due Date Last Done Comments [facility]-HIV Screening 1987 [facility]-Hepatitis C Screening 1987 [facility]-/Child/Adol SDOH Screenings 1987 [facility]-Varicella Vaccines (1 of 2 - 13+ 2-dose series) 2000 HPV Vaccines (1 - 3-dose series) 2002 [facility]- SDOH Screenings 2005 [facility]-Adult SDOH Screenings 2005 [facility]-Hepatitis B Vaccines (1 of 3 - 19+ 3-dose series) 2006 [facility]-Pneumococcal Vaccine: Pediatrics (0 to 5 Years) and At-Risk Patients (6 to 49 Years) (1 of 2 - PCV) 2006 [facility]-Pap Smear 2008 [facility]-Cervical Cancer Screening 2017 [facility]-HPV/Cotest 2017 [facility]-DTaP,Tdap,and Td Vaccines (2 - Td or Tdap) 06/28/2020 06/28/2010 [id number] Vaccine (4 - season) 2024 08/25/2021, 11/25/2020, 10/28/2020 [facility]-Depression Screening 07/12/2024 07/12/2023 [facility]-Influenza Vaccine (Season Ended) 2025 09/15/2010 [facility]-Zoster Vaccines (1 of 2) 2037 [facility]-Obesity Intervention Completed 023, 01/16/2023, 11/05/2022, Additional history exists [facility]-HIB Vaccines Aged Out No longer e ligible based on patient's age to complete this topic [facility]-Hepatitis A Vaccines Aged Out No longer eligible based on patient's age to complete this topic [facility]-IPV Vaccines Aged Out No longer e ligible based on patient's age to complete this topic [facility]-Rotavirus Vaccines Aged Out No lo nger eligible based on patient's age to complete this topic Insurance KASEY Care Teams Bench Assembler Operator Relationship Specialty Start Date End Date Molly Plunkett APRN [address] [place] [address] PCP - General 09/26/22
--- OUTSIDE RECORDS SUMMARY | 2025-03-24 10:10 | XMS_ITS | Encounter Summary ---
Author Organization [facility] Address [address] [id number] Care Team Providers Care City Carrier Assistant Name Role Phone Molly Plunkett TARUN Primary Care Provider +1- [phone] Reason for Visit * Reason Comments Med Refill Encounter Details Date Type Department Care Team (Late st Contact Info) Description 04/15/2023 Refill Obstetrics & Gynecology [address] [place] [address] Gissell Rios MD [address] [place] [address] Pelvic and perineal pain Social History Tobacco Use Types Packs/Day Years Used Date Smoking Tobacco: Never Smokeless Tobacco: Never Alcohol Use Standard Drinks/Week Comments Yes 3 (1 standard drink = 0.6 oz pur e alcohol) Comments No Sex and Gender Information Value Date Recorded Sex Assigned at Not on file Legal Sex Female 12:14 PM EST Gender Identity Not on file Sexual Orientation Not on file documented as of this encounter Miscellaneous Notes * Telephone Encounter - Geoffrey Jackson - 04/16/2023 9:47 AM EDT Messaged patient if she is having UTI symptoms documented in this encounter Plan of Treatment Not on file documented as of this encounter Visit Diagnoses Diagnosis Pelvic and perineal pain documented in this encounter Additional Health Concerns Assessment Noted Time A Body Mass Index follow-up plan has been documented for the patient 01/16/2023 8:42 AM EDT documented as of this encounter Care Teams City Carrier Assistant Relationship Specialty Start Date End Date Molly Plunkett APRN [facility] [address] [address] PCP - General 09/26/22 documented as of this encounter
== END ==
LOC: SL 03-24 10:03
PROVIDERS: PCP Nurse Practitioner Family; Visit Provider Nurse Practitioner Family
DX: G47.33 Obstructive sleep apnea (adult) (pediatric) (principal); J45.909 Unspecified asthma, uncomplicated; E66.9 Obesity, unspecified
CPT/HCPCS: G0399